=== PATIENT | female | born 2000 | race Caucasian/White ===

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

== ENCOUNTER → 2021-07-26 | Outpatient (CLI) | payer BC | LOC: LAB 10:15 | DX: N89.8 Other specified noninflammatory disorders of vagina (principal) ==

== ENCOUNTER → 2021-10-05 | Outpatient (CLI) | payer BC | LOC: LAB 08:20 | DX: N39.0 Urinary tract infection, site not specified (principal) ==

== ENCOUNTER → 2022-07-26 | Outpatient (CLI) | payer BC ==
[2022-07-26 09:35] LABS: BASO # 0.05 K/mm3 (0.02-0.10); EOS # 0.09 K/mm3 (0.04-0.40); EOS % 1.8 % (0.1-4.0); HEMOGLOBIN 10.2 g/dL (12.0-15.0); LYMPH# 1.32 K/mm3 (1.20-3.40); MEAN CELL VOLUME 77 fl (78-95); MEAN CORPUSCULAR HEMOGLOBIN 24 pg (26-32); MEAN CORPUSCULAR HGB CONC 31 g/dL (33-37); MEAN PLATELET VOLUME 9.3 fl (7.4-10.4); MONO # 0.39 K/mm3 (0.10-0.60); NEU # 3.14 K/mm3 (1.40-6.50); PLATELET COUNT 299 K/mm3 (130-400); RED BLOOD COUNT 4.28 M/mm3 (4.10-5.30); RED CELL DISTRIBUTION WIDTH 15.7 % (11.5-14.5)
[2022-07-26 09:43] LABS: ALBUMIN 3.9 g/dL (3.5-5.0)
[2022-07-26 09:45] LABS: CALCIUM 8.8 mg/dL (8.3-10.5)
[2022-07-26 09:46] LABS: TOTAL PROTEIN 7.1 g/dL (6.4-8.3)
[2022-07-26 09:48] LABS: TOTAL BILIRUBIN 0.6 mg/dL (0.2-1.2)
== END ==
LOC: LAB 09:21
PROVIDERS: Family Medicine
DX: Z00.00 Encounter for general adult medical examination without abnormal findings (principal); N76.0 Acute vaginitis; E78.5 Hyperlipidemia, unspecified; N92.1 Excessive and frequent menstruation with irregular cycle